=== PATIENT | male | born 1955 | race Hispanic/Latino ===

== ENCOUNTER 2019-10-03 17:10 | Emergency (ER) | payer MEDICARE ==
[~2019-10-03] VITALS: Ht 170.2 cm; Wt 81.6 kg
[2019-10-03] MEDS ORDERED: ONDANSETRON HCL 4 MG/2 ML VIAL ONE ×2 (17:19→17:54)
[2019-10-03] MEDS ORDERED: SODIUM CHLORIDE 0.9% 1000ML 1,000 ML IV ONE (17:19)
[2019-10-03] MEDS ORDERED: SUCCINYLCHOLINE CHLORIDE 20 MG/ML 10 ML VIAL ONE (17:52)
[2019-10-03] MEDS ORDERED: LIDOCAINE PF 2% 5ML ABBOJECT ONE (17:52)
[2019-10-03] MEDS ORDERED: PROPOFOL 10 MG/ML 20ML VIAL IV ONE (17:52)
[2019-10-03] MEDS ORDERED: GLYCOPYRROLATE 0.2 MG/ML 5 ML VIAL ONE (18:04)
[2019-10-03 18:05] VITALS: BP 201/92
[2019-10-03] MEDS ORDERED: GLUCAGON 1MG KIT 1 MG ML ONE (18:08)
[2019-10-03 19:25] VITALS: BP 168/81
[2019-10-03 19:30] VITALS: BP 174/66
[2019-10-03 19:35] VITALS: BP 164/59
[2019-10-03 19:40] VITALS: BP 181/63
[2019-10-03 19:45] VITALS: BP 168/58
== END 2019-10-03 20:50 | disposition home or self-care (01) ==
LOC: EDH 17:10
DX: T17.208A Unspecified foreign body in pharynx causing other injury, initial encounter (principal); E11.9 Type 2 diabetes mellitus without complications; I10 Essential (primary) hypertension; Z95.1 Presence of aortocoronary bypass graft; X58.XXXA Exposure to other specified factors, initial encounter; Y93.89 Activity, other specified; Y92.89 Other specified places as the place of occurrence of the external cause; Y99.8 Other external cause status
CPT/HCPCS: 43247; 43249; 71045; 96361; 96374; 99285; A4606; A4657; A4663; J0330; J1610; J2001; J2405 ×2; J2704; J3490; J7030

== ENCOUNTER → 2020-08-23 | Outpatient (CLI) | payer MEDICARE ==
[~2020-08-23] VITALS: Ht 170.2 cm; Wt 77.1 kg
[~2020-08-23] MED LIST: REGADENOSON 0.4 MG/5 ML PF SYG IVP SCH
== END | disposition home or self-care (01) ==
LOC: SHCH 08:43
PROVIDERS: ATTEND Internal Medicine Cardiovascular Disease
DX: R07.9 Chest pain, unspecified (principal)
CPT/HCPCS: 78452; 93017; 96374; A9500 ×2; J2785